=== PATIENT | male | born 1990 | race Caucasian/White ===

== ENCOUNTER 2017-02-13 10:15 | Emergency (ER) | payer OTHER, BC ==
[2017-02-13 10:18] VITALS: BP 154/97; PULSE 91; TEMP 99.2; BMI 32.1
[2017-02-13] MEDS ORDERED: KETOROLAC TROMETHAMINE 60 MG/2 ML VIAL ONE (10:54)
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
== END 2017-02-13 11:35 | disposition home or self-care (01) ==
LOC: JERFT 10:15
DX: S39.92XA Unspecified injury of lower back, initial encounter (principal); Y35.891A Legal intervention involving other specified means, law enforcement official injured, initial encounter; Y93.F2 Activity, caregiving, lifting; Y92.89 Other specified places as the place of occurrence of the external cause; Y99.0 Civilian activity done for income or pay
CPT/HCPCS: 99281-25

== ENCOUNTER 2017-12-25 02:54 | Emergency (ER) | payer OTHER ==
[2017-12-25 03:21] VITALS: BP 126/71; PULSE 89; TEMP 97.6; BMI 32.1
[2017-12-25] MEDS ORDERED: IBUPROFEN 600 MG TABLET (FP) PO ONE ×2 (03:24→03:34)
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
== END 2017-12-25 04:09 | disposition home or self-care (01) ==
LOC: JER 02:54
DX: S60.221A Contusion of right hand, initial encounter (principal); Y35.811A Legal intervention involving manhandling, law enforcement official injured, initial encounter; Y93.89 Activity, other specified; Y92.89 Other specified places as the place of occurrence of the external cause; Y99.0 Civilian activity done for income or pay
CPT/HCPCS: 73110-TC-RT-FY; 73130-TC-RT-FY; 99283-25

== ENCOUNTER 2020-03-23 00:48 | Emergency (ER) | payer OTHER ==
[2020-03-23 00:56] VITALS: BMI 32.2
[2020-03-23 01:03] VITALS: BP 126/57; PULSE 72; TEMP 99
== END 2020-03-23 01:13 | disposition home or self-care (01) ==
LOC: FER 00:48
DX: Z77.21 Contact with and (suspected) exposure to potentially hazardous body fluids (principal)
CPT/HCPCS: 99283-25

== ENCOUNTER 2020-07-14 12:36 | Emergency (ER) | payer BC, OTHER ==
[2020-07-14 12:47] VITALS: BP 141/82; PULSE 78; TEMP 98.3; BMI 30.8
== END 2020-07-14 14:27 | disposition home or self-care (01) ==
LOC: FER 12:36
DX: M79.661 Pain in right lower leg (principal)
CPT/HCPCS: 93971-TC; 99284-25

== ENCOUNTER 2020-11-28 05:09 | Emergency (ER) | payer OTHER ==
[2020-11-28 05:14] VITALS: TEMP 98.9; BMI 30.8
[2020-11-28] MEDS ORDERED: KETOROLAC TROMETHAMINE 15 MG/ML VIAL IM ONE (05:31)
[2020-11-28] MEDS ORDERED: METHOCARBAMOL 750 MG TABLET PO ONE (05:31)
[2020-11-28] MEDS ORDERED: METHOCARBAMOL 500 MG TABLET ONE (05:36)
[2020-11-28] MEDS ORDERED: KETOROLAC TROMETHAMINE 30 MG/1 ML VIAL ONE (05:36)
[2020-11-28 06:29] VITALS: BP 130/79; PULSE 62
== END 2020-11-28 06:32 | disposition home or self-care (01) ==
LOC: FER 05:09
PROC: 3E023GC Introduction of Other Therapeutic Substance into Muscle, Percutaneous Approach (ICD-10-PCS; principal; 2020-11-28)
DX: M54.50 Low back pain, unspecified (principal); M25.552 Pain in left hip; V49.50XA Passenger injured in collision with unspecified motor vehicles in traffic accident, initial encounter
CPT/HCPCS: 72170-TC-FY; 99284-25

== ENCOUNTER 2021-10-14 20:40 | Emergency (ER) | payer BC, OTHER ==
[2021-10-14] MEDS ORDERED: SODIUM CHLORIDE 1,000 ML IV STA (20:57)
[2021-10-14] MEDS ORDERED: ACETAMINOPHEN 1000 MG/100 ML BAG IVPB ONE (20:57)
[2021-10-14] MEDS ORDERED: ONDANSETRON 4 MG/2 ML VIAL IVPUSH ONE (20:57)
[2021-10-14 21:05] VITALS: BP 140/84; PULSE 103; RESP 17; TEMP 100.8; BMI 33.3
[2021-10-14] MEDS ORDERED: ACETAMINOPHEN INJECTION 100 ML IVPB ONE (21:06)
[2021-10-14] MEDS ORDERED: ONDANSETRON 4 MG/2 ML VIAL ONE (21:06)
[2021-10-14 21:22] LABS: HEMATOCRIT 43.4 % (35.4-49); HEMOGLOBIN 15.8 G/dL (11.7-16.9); MCH 33.2 pg (25.7-33.7); MCHC 36.4 g/dl (32.0-35.9); MEAN CELL VOLUME 91.2 fl (80-96); MEAN PLT VOLUME 7.1 fl (7.5-11.1); PLATELET COUNT 254.3 10^3/uL (134-434); RBC 4.76 10^6/uL (4.00-5.60); RDW 12.7 % (11.9-15.9); WHITE BLOOD COUNT 10.3 10^3/uL (4.0-10.8)
[2021-10-14 21:31] LABS: ALBUMIN 4.2 g/dl (3.4-5.0); CALCIUM 9.1 mg/dl (8.5-10); TOT PROT 7.2 g/dl (6.4-8.2)
[2021-10-14 21:34] LABS: PLATELET ESTIMATE ADEQUATE
== END 2021-10-14 22:50 | disposition home or self-care (01) ==
LOC: FER 20:40
PROC: 3E0333Z Introduction of Anti-inflammatory into Peripheral Vein, Percutaneous Approach (ICD-10-PCS; principal; 2021-10-14)
PROC: 3E033GC Introduction of Other Therapeutic Substance into Peripheral Vein, Percutaneous Approach (ICD-10-PCS; 2021-10-14)
PROC: 3E0337Z Introduction of Electrolytic and Water Balance Substance into Peripheral Vein, Percutaneous Approach (ICD-10-PCS; 2021-10-14)
DX: K42.9 Umbilical hernia without obstruction or gangrene (principal)
CPT/HCPCS: 36415; 80053; 85027; 99284-25

== ENCOUNTER 2022-09-14 14:04 | Emergency (ER) | payer BC, OTHER ==
[2022-09-14 14:16] VITALS: BP 119/73; PULSE 63; RESP 18; TEMP 98.9; BMI 28.2
== END 2022-09-14 14:37 | disposition home or self-care (01) ==
LOC: SUPCPDRO 14:04 → FER 14:04
DX: M54.50 Low back pain, unspecified (principal); V49.40XA Driver injured in collision with unspecified motor vehicles in traffic accident, initial encounter
CPT/HCPCS: 99282-25